=== PATIENT | male | born 1995 | race Caucasian/White ===

== ENCOUNTER 2017-04-01 11:12 | Emergency (ER) | payer OTHER ==
[2017-04-01] MEDS ORDERED: Lidocaine 1% 50 ML MDV INJECT ONE (11:37)
--- NOTE | 2017-04-01 11:53 | EDM.PDOC ---
<BryannaVerito - Last Filed: 04/01/17 11:48> ED HPI GENERAL MEDICAL PROBLEM - General Chief Complaint: Upper Extremity Injury/Pain Stated Complaint: LEFT MIDDLE FINGER LAC Time Seen by Provider: 04/01/17 11:35 - History of Present Illness INITIAL COMMENTS - FREE TEXT/NARRATIVE: Patient is a 21 year old male here for left middle finger injury. 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 He says the injury occurred this morning, but is unsure about the specific time. He rates the pain in his finger at 5/10 and has not taken anything for pain. He denies other injuries or numbness in his finger or hand. He is unsure when his last tetanus vaccine was, but thinks it has been in the last 10 years. Patient is not a diabetic and does not smoke. Left Hand Pain Score (Numeric/FACES): 8 - Related Data Allergies Allergy/AdvReac Type Severity Reaction Status Date / Time No Known Allergies Allergy Verified 04/01/17 11:22 Home Meds: Home Meds Acetaminophen/HYDROcodone [[place] 325-5 MG] 1 tab PO Q6H PRN #15 tablet 04/01/17 [Rx] Cephalexin [Keflex] 500 mg PO Q8H #21 cap 04/01/17 [Rx] Past Medical History - Past Health History Medical/Surgical History: Denies Medical/Surgical History Social & Family History - Tobacco Use Smoking Status *Q: Never Smoker - Alcohol Use Days Per Week of Alcohol Use: 0 - Recreational Drug Use Recreational Drug Use: No Review of Systems - Review of Systems Skin: Reports: Wound, Change in Hair/Nails (blue bruising to nail on left middle finger) ED EXAM, GENERAL - Physical Exam Exam Limited By: No Limitations General Appearance: Alert, Mild Distress Peripheral Pulses: 2+: Radial (L) Extremities: Normal Range of Motion, Other (tenderness to left middle finger). No: Joint Swelling Skin Exam: No: Intact Course - Vital Signs Last Recorded V/S: Last Vital Signs Temp 98.3 F 04/01/17 11:22 Pulse 77 04/01/17 11:22 Resp BP 137/82 04/01/17 11:22 Pulse Ox 99 04/01/17 11:22 - Orders/Labs/Meds Meds: Medications Discontinued Medications Generic Name Dose Route Start Last Admin Trade Name Freq PRN Reason Stop Dose Admin Cephalexin 500 mg 04/01/17 12:51 04/01/17 12:58 Keflex PO 04/01/17 12:52 500 mg ONETIME ONE Administration Lidocaine HCl 10 ml 04/01/17 11:37 04/01/17 11:42 Xylocaine 1% INJECT 04/01/17 11:38 50 ml ONETIME ONE Administration Departure - Departure Disposition: Home, Self-Care 01 Clinical Impression: Open fracture of tuft of distal phalanx of finger Crushed finger, distal Qualifiers: Encounter type: initial encounter Qualified Code(s): S67.10XA - Crushing injury of unspecified finger(s), initial encounter - Discharge Information Prescriptions: Acetaminophen/HYDROcodone [[place] 325-5 MG] 1 tab PO Q6H PRN #15 tablet PRN Reason: Pain (Severe 7-10) Cephalexin [Keflex] 500 mg PO Q8H #21 cap Instructions: Finger Fracture, [id number], Cast or Splint Care, Adult, Easy- to-Read Referrals: PCP,None [Primary Care Provider] - Andrés Palacios MD [Physician] - Forms: ED Department Discharge, ED Return to Work/School Form Additional Instructions: Leave dressing in place until tomorrow morning. Change dressing twice daily. Cleanse site twice daily with soap and water, pat dry, reapply dressing and also splint. Wear the splint until evaluated by Dr. Palacios in 1 week. Call tomorrow to make an appointment. For pain elevate when able to reduce any swelling. Apply ice to the affected area 3-4 times daily, 30 minutes in duration , do not apply ice directly on the skin. Do not use the affected hand for any heavy lifting. For pain may take Tylenol and also ibuprofen in alternating fashion as needed. For severe pain take [place] one tab every [address] taking the [place]. Follow return to work instructions. Return to work if you develop any new or worsening symptoms. <Jeferson Crystal O - Last Filed: 04/01/17 20:12> ED HPI GENERAL MEDICAL PROBLEM - General Source of Information: Reports: Patient History Limitations: Reports: No Limitations Review of Systems - Review of Systems Review Of Systems: See Below Musculoskeletal: Reports: Other (Left middle finger: nail pulled away from nailbed. Multiple lacerations that would require repair. ) Neurological: Denies: Numbness, Tingling ED EXAM, GENERAL - Physical Exam Exam: See Below Neck: Normal Inspection, Supple Respiratory/Chest: No Respiratory Distress, No Accessory Muscle Use Cardiovascular: Normal Peripheral Pulses, Regular Rate, Rhythm Neurological: Alert, Oriented, CN II-XII Intact, Normal Cognition, No Motor/ Sensory Deficits Psychiatric: Normal Affect, Normal Mood Skin Exam: Warm, Dry ED TRAUMA EXTREMITY PROCEDURES - Laceration/Wound Repair Left Distal Finger Lac/Wound Length In cm: 1.5 Appearance: Subcutaneous, Clean Distal NVT: Neuro & Vascular Intact, No Tendon Injury Anesthetic Type: Digital Local Anesthesia - Lidocaine (Xylocaine): 1% Plain Local Anesthetic Volume: Other (Ring digital block with approximate 8mls of 1% lidocaine. Local anesthetic required approximately 2 mls.) Skin Prep: Chlorhexidine (Hibiciens), Sterile Drape Exploration/Debridement/Repair: Wound Explored, In a Bloodless Field, Explored to Base, No Foreign Material Found Closed With: Sutures Suture Size: 4-0 # of Sutures: 3 (Nail returned back to anatomical positioning. ) Suture Type: Prolene, Interrupted, Simple Drain Placement: No Sterile Dressing Applied: Nurse Tetanus Status Addressed: Yes Complications: No Left Medial Distal Finger Lac/Wound Length In cm: 1 Appearance: Subcutaneous Distal NVT: Neuro & Vascular Intact, No Tendon Injury Anesthetic Type: Digital Local Anesthesia - Lidocaine (Xylocaine): 1% Plain Local Anesthetic Volume: Other (8) Skin Prep: Chlorhexidine (Hibiciens), Saline, Sterile Drape Exploration/Debridement/Repair: Wound Explored, In a Bloodless Field, Explored to Base, No Foreign Material Found Closed With: Sutures Suture Size: 4-0 # of Sutures: 3 Suture Type: Prolene, Interrupted, Simple Drain Placement: No Sterile Dressing Applied: Nurse Tetanus Status Addressed: Yes Complications: No Left Sides of Distal Finger Lac/Wound Length In cm: 0.5 Appearance: Subcutaneous Distal NVT: Neuro & Vascular Intact Anesthetic Type: Digital Local Anesthesia - Lidocaine (Xylocaine): 1% Plain Local Anesthetic Volume: Other (8) Skin Prep: Chlorhexidine (Hibiciens), Saline, Sterile Drape Exploration/Debridement/Repair: Wound Explored, In a Bloodless Field, Explored to Base, No Foreign Material Found Closed With: Sutures Suture Size: 4-0 # of Sutures: 3 Suture Type: Prolene, Interrupted, Simple Drain Placement: No Sterile Dressing Applied: Nurse Tetanus Status Addressed: Yes Complications: Yes Course - Re-Assessments/Exams Free Text/Narrative Re-Assessment/Exam: 1200 Agree with HPI and assessment by Verito WILSON. X-ray of the left middle finger does reveal a tuft fracture. Spoke with Dr. Palacios and he will see the patient in the E.D. 1210 Dr. Palacios at bedside. States place nail bed back into anatomical position with a few sutures. Suture lacerations and place in splint. F/U in 1 wk for reevaluation with him. Nail bed and lacerations closed by myself, Eloisa KAYE, and Verito WILSON. Dressing applied with splint. Ordered keflex 500 mg PO.Discharge instructions as documented. Departure - Departure Time of Disposition: 12:56 Condition: Good
--- NOTE | 2017-04-01 12:25 | CR ---
Left third finger: Four views of the left third finger were obtained. Slightly comminuted fracture is seen within the tuft of the distal phalanx of the third finger with mild displacement of fracture fragments. Soft tissue injury and swelling are noted. No proximal bony abnormality is seen. Impression: 1. Injury to the distal left third finger as described above. Diagnostic code #3
[2017-04-01] MEDS ORDERED: Cephalexin 500 MG Cap PO ONE (12:51)
== END 2017-04-01 13:20 | disposition home or self-care (01) ==
LOC: JD.ED 11:12
DX: S62.633B Displaced fracture of distal phalanx of left middle finger, initial encounter for open fracture (principal); S67.193A Crushing injury of left middle finger, initial encounter; W23.0XXA Caught, crushed, jammed, or pinched between moving objects, initial encounter
CPT/HCPCS: 12002; 73140; 99284; A9270

== ENCOUNTER 2022-06-10 22:56 | Emergency (ER) | payer BC ==
[2022-06-10] MEDS ORDERED: Cephalexin 500 MG Cap PO ONE (23:35)
== END 2022-06-10 23:43 | disposition home or self-care (01) ==
LOC: JD.ED 22:56
DX: L73.9 Follicular disorder, unspecified (principal); F17.210 Nicotine dependence, cigarettes, uncomplicated
CPT/HCPCS: 99283; A9270